=== PATIENT | male | born 1970 | race Caucasian/White ===

== ENCOUNTER 2023-07-12 13:52 | Emergency (ER) | payer MEDICAID ==
--- NOTE | 2023-07-12 14:05 | ERPHSYRPT ---
- History of Present Illness Time Seen by Provider: 07/12/23 14:05 Source: patient Exam Limitations: no limitations Physician History: This is a 53-year-old white male patient has a history of hypothyroidism and hypertension and presents to the emergency department with right calf and swelling for 2 days. Patient has a past history of trauma to his right hip and states he has chronic problem with his right lower leg. However, he has never had swelling like this in his right calf. He has not had any recent long distance travel. He has no bleeding or clotting disorders. He did have some trauma to the right calf, per his report, 2 days ago and has noticed that there is been increased pain and swelling in that right posterior calf since then. He has no chest pain. He has no cough. He has no shortness of breath, he is not on any anticoagulation therapy Method of Injury: direct blow Occurred: days ago (2) Severity of Pain-Max: mild (To moderate) Severity of Pain-Current: mild (To moderate) Lower Extremities Pain: leg: right (Posterior calf pain and swelling) Modifying Factors: Improves With: movement Associated Symptoms: other (Hurts to bear weight) Allergies/Adverse Reactions: No Known Drug Allergies Allergy (Verified 07/12/23 14:06) Home Medications: Amlodipine Besylate 5 mg [Norvasc 5 mg] 5 mg PO DAILY 07/12/23 [History] Levothyroxine Sodium 75 mg PO DAILY 07/12/23 [History] Lisinopril/Hydrochlorothiazide [Lisinopril-Hctz 20-25 mg Tab] 1 each PO DAILY 07/12/23 [History] Travel Risk - International Travel Have you traveled outside of the country in past 3 weeks: No - Coronavirus Screening Are you exhibiting any of the following symptoms?: No Close contact with a COVID-19 positive Pt in past 14-21 Days: No - Review of Systems Constitutional: No Symptoms Eyes: No Symptoms Ears, Nose, & Throat: No Symptoms Respiratory: No Symptoms Cardiac: No Symptoms Abdominal/Gastrointestinal: No Symptoms Genitourinary Symptoms: No Symptoms Musculoskeletal: Injury (Right posterior calf) Skin: No Symptoms Neurological: No Symptoms Psychological: No Symptoms Endocrine: No Symptoms Hematologic/Lymphatic: No Symptoms Immunological/Allergic: No Symptoms All Other Systems: Reviewed and Negative - Past Medical History Pertinent Past Medical History: Yes - Past Surgical History Past Surgical History: Yes - Nursing Vital Signs Nursing Vital Signs: Initial Vital Signs Temperature 97.2 F 07/12/23 13:58 Pulse Rate 82 07/12/23 13:58 Respiratory Rate 20 07/12/23 13:58 Blood Pressure 119/69 07/12/23 13:58 O2 Sat by Pulse Oximetry 100 07/12/23 13:58 Pain Scale Pain Intensity 0 - Physical Exam General Appearance: no apparent distress, alert, anxiety Eyes, Ears, Nose, Throat Exam: normal ENT inspection, moist mucous membranes Neck Exam: normal inspection, non-tender, supple, full range of motion Cardiovascular/Respiratory Exam: chest non-tender, no respiratory distress Gastrointestinal/Abdominal Exam: non-tender Back Exam: normal inspection, normal range of motion, No CVA tenderness, No vertebral tenderness Hips Exam: bilateral: non-tender, normal inspection, normal range of motion, no evidence of injury Legs Exam: right leg: soft tissue tenderness (Right posterior calf), swelling (Right posterior calf) Knees Exam: bilateral knee: non-tender, normal inspection, normal range of motion, no evidence of injury Ankle Exam: bilateral ankle: non-tender, normal inspection, normal range of motion, no evidence of injury Foot Exam: bilateral foot: non-tender, normal inspection, normal range of motion, no evidence of injury Neuro/Tendon Exam: normal sensation, normal motor functions, normal tendon functions, responds to pain, no evidence tendon injury Mental Status Exam: alert, oriented x 3, cooperative Skin Exam: normal color, warm, dry SpO2 Interpretation: normal O2 Delivery: Room Air - Course Nursing assessment & vital signs reviewed: Yes Ordered Tests: Active Orders 24 hr Category Date Time Status IV Insertion STAT Care 07/12/23 14:47 Active VENOUS UNILAT/LIMITED EXTREMIT [US] Stat Exams 07/12/23 14:10 Completed CBC Q48H Lab 07/13/23 06:00 Ordered CBC Q48H Lab 07/15/23 06:00 Ordered CBC Q48H Lab 07/17/23 06:00 Ordered CBC Q48H Lab 07/19/23 06:00 Ordered CBC Q48H Lab 07/21/23 06:00 Ordered CBC Q48H Lab 07/23/23 06:00 Ordered CBC Q48H Lab 07/25/23 06:00 Ordered CBC W DIFF Stat Lab 07/12/23 15:00 Completed CMP Stat Lab 07/12/23 15:00 Completed PROTIME WITH INR Stat Lab 07/12/23 15:00 Completed PTT Q4H Lab 07/12/23 15:00 Completed PTT Q4H Lab 07/12/23 21:00 Ordered PTT Q4H Lab 07/13/23 01:00 Ordered PTT Q4H Lab 07/13/23 05:00 Ordered PTT Q4H Lab 07/13/23 09:00 Ordered PTT Q4H Lab 07/13/23 13:00 Ordered PTT Q4H Lab 07/13/23 17:00 Ordered PTT Q4H Lab 07/13/23 21:00 Ordered PTT Q4H Lab 07/14/23 01:00 Ordered PTT Q4H Lab 07/14/23 05:00 Ordered PTT Q4H Lab 07/14/23 09:00 Ordered PTT Q4H Lab 07/14/23 13:00 Ordered Medication Summary Generic Name Dose Route Start Last Admin Trade Name Arnoldq PRN Reason Stop Dose Admin Heparin Sodium/Dextrose 25,000 units in 250 mls @ 11.628 mls/hr 07/12/23 17:00 07/12/23 17:06 Heparin 25,000 Units/D5w: Use Order Set Melody IV 08/11/23 16:59 10.32 units/kg/hr .[id number] ROSITA 10 mls/hr Administration Protocol 12 UNITS/KG/HR Discontinued Medications Generic Name Dose Route Start Last Admin Trade Name Diogenes PRN Reason Stop Dose Admin Enoxaparin Sodium 100 mg 07/12/23 14:46 07/12/23 14:53 Enoxaparin Sodium 120 Mg/0.8 Ml Syringe SQ 07/12/23 14:47 100 mg STAT STA Administration Enoxaparin Sodium Confirm 07/12/23 14:52 Enoxaparin Sodium 120 Mg/0.8 Ml Syringe Administered 07/12/23 14:53 Dose 120 mg SQ .STK-MED ONE Heparin Sodium (Beef Lung) 5,000 unit 07/12/23 16:47 07/12/23 17:06 Heparin 5000 Units/0.5 Ml 5,000 Unit/0.5 Ml Syr IV 07/12/23 16:48 5,000 unit STAT ONE Administration Heparin Sodium (Beef Lung) Confirm 07/12/23 16:59 Heparin 5000 Units/0.5 Ml 5,000 Unit/0.5 Ml Syr Administered 07/12/23 17:00 Dose 5,000 unit .ROUTE .[facility]-MED ONE Lab/Rad Data: Laboratory Result Diagrams 07/12/23 15:00 07/12/23 15:00 Laboratory Results 07/12/23 07/12/23 07/12/23 Range/Units 15:00 15:00 15:00 WBC (4.0-10.5) x10^3/uL RBC (4.1-5.6) x10^6/uL Hgb (12.5-18.0) g/dL Hct (42-50) % MCV (78-100) fL MCH (26-32) pg MCHC (32-36) g/dL RDW (11.5-14.0) % Plt Count (150-450) x10^3/uL MPV (7.5-11.0) fL Gran % (36.0-66.0) % Immature Gran % (Auto) (0.00-0.4) % Nucleat RBC Rel Count (0.00-0.1) % Eos # (Auto) (0-0.5) x10^3/uL Immature Gran # (Auto) (0.00-0.03) x10^3u/L Absolute Lymphs (auto) (1.0-4.6) x10^3/uL Absolute Monos (auto) (0.0-1.3) x10^3/uL Absolute Nucleated RBC (0.00-0.01) x10^3u/L Lymphocytes % (24.0-44.0) % Monocytes % (0.0-12.0) % Eosinophils % (0.00-5.0) % Basophils % (0.0-0.4) % Absolute Granulocytes (1.4-6.9) x10^3/uL Basophils # (0-0.4) x10^3/uL PT 10.3 (9.4-12.5) SECONDS INR 0.94 (0.8-3.0) APTT 30.0 (25.1-36.5) SECONDS Sodium 137 (137-145) mmol/L Potassium 3.4 L (3.5-5.1) mmol/L Chloride 101 (98-107) mmol/L Carbon Dioxide 25 (22-30) mmol/L Anion Gap 14.3 (5-15) MEQ/L BUN 11 (9-20) mg/dL Creatinine 0.94 (0.66-1.25) mg/dL Estimated GFR > 60.0 ML/MIN Glucose 125 H (74-106) mg/dL Calcium 9.4 (8.4-10.2) mg/dL Total Bilirubin 1.00 (0.2-1.3) mg/dL AST 25 (17-59) U/L ALT 21 (0-50) U/L Alkaline Phosphatase 48 (38-126) U/L Serum Total Protein 7.5 (6.3-8.2) g/dL Albumin 4.5 (3.5-5.0) g/dL 07/12/23 Range/Units 15:00 WBC 6.1 (4.0-10.5) x10^3/uL RBC 4.72 (4.1-5.6) x10^6/uL Hgb 15.0 (12.5-18.0) g/dL Hct 43.5 (42-50) % MCV 92.2 (78-100) fL MCH 31.8 (26-32) pg MCHC 34.5 (32-36) g/dL RDW 12.7 (11.5-14.0) % Plt Count 120 L (150-450) x10^3/uL MPV 10.4 (7.5-11.0) fL Gran % 73.7 H (36.0-66.0) % Immature Gran % (Auto) 0.2 (0.00-0.4) % Nucleat RBC Rel Count 0.0 (0.00-0.1) % Eos # (Auto) 0.03 (0-0.5) x10^3/uL Immature Gran # (Auto) 0.01 (0.00-0.03) x10^3u/L Absolute Lymphs (auto) 0.94 L (1.0-4.6) x10^3/uL Absolute Monos (auto) 0.59 (0.0-1.3) x10^3/uL Absolute Nucleated RBC 0.00 (0.00-0.01) x10^3u/L Lymphocytes % 15.4 L (24.0-44.0) % Monocytes % 9.7 (0.0-12.0) % Eosinophils % 0.5 (0.00-5.0) % Basophils % 0.5 (0.0-0.4) % Absolute Granulocytes 4.50 (1.4-6.9) x10^3/uL Basophils # 0.03 (0-0.4) x10^3/uL PT (9.4-12.5) SECONDS INR (0.8-3.0) APTT (25.1-36.5) SECONDS Sodium (137-145) mmol/L Potassium (3.5-5.1) mmol/L Chloride (98-107) mmol/L Carbon Dioxide (22-30) mmol/L Anion Gap (5-15) MEQ/L BUN (9-20) mg/dL Creatinine (0.66-1.25) mg/dL Estimated GFR ML/MIN Glucose (74-106) mg/dL Calcium (8.4-10.2) mg/dL Total Bilirubin (0.2-1.3) mg/dL AST (17-59) U/L ALT (0-50) U/L Alkaline Phosphatase (38-126) U/L Serum Total Protein (6.3-8.2) g/dL Albumin (3.5-5.0) g/dL - Progress Progress: unchanged Progress Note: 07/12/23 14:28 This patient's medical issue is 1 of moderate to high complexity. The level of complexity and the work-up performed is based on review of the patient's past medical history, review the patient's medication list, review the patient's drug allergy list, history present illness and physical findings on examination. The work-up in this patient is at a minimum venous Doppler of the right lower extremity. Depending on the findings will dictate the next step. 07/12/23 14:45 The venous ultrasound of the right lower extremity was interpreted by the instrument technologist. There is a DVT from the common femoral distally. 07/12/23 14:[address] Weaver, our telehospitalist. I reviewed the patient history and findings of the venous Doppler of his right lower extremity. The labs are pending. He agrees to place this patient in observation as long as the renal function is appropriate. I will provide the patient with Lovenox 100 mg subcutaneous now and wait for his labs results. 07/12/23 15:51 Dr. Weaver, the telehospitalist, reviewed the patient's history and findings of the venous Doppler ultrasound the right lower extremity. He declines admission. He feels that the patient might be best served, since he is young and the clot is extensive in the right lower extremity, by transfer to higher level care where they can perform interventional radiology and thrombolytic therapy. I do not disagree with him. I will discuss this with the patient and transfer him to [place] for further evaluation and management. 07/12/23 16:19 I did speak with the patient and his family. He is agreeable to be transferred. We will locate a facility that has both interventional radiology and vascular surgery available. 07/12/23 16:[address] Ugalde, interventional radiologist at [facility] in [facility]. I reviewed the patient history, patient complaint, physical findings and the results of the work-up with him. After our discussion, the plan is to admit the patient to the hospitalist. Dr. Ugalde wants the patient n.p.o., heparin IV bolus and weight-based heparin treatment. We are waiting the hospitalist at [facility] to call us back. 07/12/23 17:34 I did speak with the hospitalist, Dr. Hastings, from [facility]. I reviewed the results of the patient's work-up as well as history of the present illness. He accepts the patient in transfer. The patient preferred to go to [facility] rather than any facility further away. 07/12/23 17:35 Counseled pt/family regarding: diagnosis, need for follow-up, rad results Medical Desision Making - Independent Historian Additional History obtained from: Spouse - Discussion of managment Care discussed with:: hospitalist Reviewed:: Test results, Need for additional workup - Diagnostic Testing Diagnostic test were ordered, analyzed, and reviewed by me: Yes Radiological Interpretation: Reviewed by me, Teleradiologist Report - Risk of complications The pt has a high risk of morbidity or mortality based on: Decision regarding hospitilization or escalation of hosp level of care - Departure Departure Disposition: Transfer Clinical Impression: Right leg DVT Condition: Stable Critical Care Time: Yes Critical Care Time(excluding separately billable procedures): Critical 30-74 mins (30 minutes) Referrals: DOCTOR,NO FAMILY [Primary Care Provider] - Follow up/PCP as directed
[2023-07-12 14:06] VITALS: TEMP 97.2
[2023-07-12] MEDS ORDERED: ENOXAPARIN SODIUM SQ STA (14:46)
[2023-07-12] MEDS ORDERED: ENOXAPARIN SODIUM SQ ONE (14:52)
--- NOTE | 2023-07-12 14:56 | XRAY ---
Indication: Pain and swelling. Two-dimensional sonogram and color Doppler imaging of the major venous vessels of the right leg performed. Comparison: None Occluding thrombi seen throughout the visualized common femoral, femoral, deep femoral, popliteal, posterior tibial, and greater saphenous veins. Impression: Occluding DVT entire right leg.
[2023-07-12 15:25] LABS: BASOPHIL % 0.5 % (0.0-0.4); Basophil (Absolute #) 0.03 x10^3/uL (0-0.4); Eosinophil % 0.5 % (0.00-5.0); Eosinophil (Absolute #) 0.03 x10^3/uL (0-0.5); Hematocrit 43.5 % (42-50); IMMATURE GRAN # 0.01 x10^3u/L (0.00-0.03); IMMATURE GRAN % 0.2 % (0.00-0.4); Lymphocyte (Absolute #) 0.94 x10^3/uL (1.0-4.6); Lymphocytes % 15.4 % (24.0-44.0); Mean Cell Volume 92.2 fL (78-100); Mean Corpuscular Hemoglobin 31.8 pg (26-32); Mean Corpuscular Hgb Concent. 34.5 g/dL (32-36); Mean Platelet Volume 10.4 fL (7.5-11.0); Monocyte (Absolute #) 0.59 x10^3/uL (0.0-1.3); Monocytes % 9.7 % (0.0-12.0); Neutrophil % 73.7 % (36.0-66.0); Platelet Count 120 x10^3/uL (150-450); Red Blood Count 4.72 x10^6/uL (4.1-5.6); Red Cell Distribution Width 12.7 % (11.5-14.0); White Blood Count 6.1 x10^3/uL (4.0-10.5)
[2023-07-12 15:43] LABS: ALBUMIN 4.5 g/dL (3.5-5.0); ALKALINE PHOSPHATASE 48 U/L (38-126); ANION GAP 14.3 MEQ/L (5-15); BLOOD UREA NITROGEN 11 mg/dL (9-20); CHLORIDE 101 mmol/L (98-107); Calcium 9.4 mg/dL (8.4-10.2); Carbon Dioxide 25 mmol/L (22-30); Creatinine 1 0.94 mg/dL (0.66-1.25); EST GLOMERULAR FILTRATION RATE > 60.0 ML/MIN; Glucose 125 mg/dL (74-106); INR 0.94 (0.8-3.0); PROTIME 10.3 SECONDS (9.4-12.5); Potassium 3.4 mmol/L (3.5-5.1); SGOT/AST 25 U/L (17-59); SGPT/ALT 21 U/L (0-50); SODIUM 137 mmol/L (137-145); Total Protein 7.5 g/dL (6.3-8.2)
[2023-07-12 16:21] VITALS: PULSE 83; O2SAT 97
[2023-07-12] MEDS ORDERED: HEPARIN 5000 UNITS/0.5 ML (HIGH RISK MED) IV ONE (16:47)
[2023-07-12] MEDS ORDERED: Heparin 25,000 units/D5W: USE ORDER SET PROTO 25,000 UNITS/250 ML BAG IV ONE (16:59)
[2023-07-12] MEDS ORDERED: HEPARIN 5000 UNITS/0.5 ML (HIGH RISK MED) ONE (16:59)
[2023-07-12] MEDS ORDERED: Heparin 25,000 units/D5W: USE ORDER SET PROTO 25,000 UNITS/250 ML BAG IV SCH (17:00)
[2023-07-12 18:08] VITALS: BP 127/78; RESP 15
== END 2023-07-12 19:18 | disposition short-term general hospital (02) ==
LOC: ED 13:52
DX: I82.4Z1 Acute embolism and thrombosis of unspecified deep veins of right distal lower extremity (principal); I10 Essential (primary) hypertension; Z79.899 Other long term (current) drug therapy
CPT/HCPCS: 36000; 36415; 80053; 85025; 85610; 85730; 93971; 96372; 96374; 96375; 99285; 99291; J1644; J1650